=== PATIENT | male | born 1960 | race African-American/Black ===

== ENCOUNTER 2023-11-15 16:52 | Emergency (ER) | payer MEDICARE, MEDICAID ==
[~2023-11-15] VITALS: Ht 170.2 cm; Wt 70.0 kg
[2023-11-15 17:00] VITALS: O2SAT 98
[2023-11-15] MEDS: SODIUM CHLORIDE 0.9% 1000ML BAG (SEPSIS BOLUS) IV ONE (19:15)
[2023-11-15 20:14] LABS: HEMATOCRIT. 24.7 % (42.0-52.0); HEMOGLOBIN. 7.7 g/dL (14.0-18.0); MEAN CORPUSCULAR HEMOGLOBIN 23.5 pg (28.0-32.0); MEAN CORPUSCULAR HGB CONC 31.2 g/dL (31.0-37.0); MEAN CORPUSCULAR VOLUME 75.1 fL (80.0-94.0); MEAN PLATELET VOLUME 8.5 fl (7.4-10.4); PLATELET 107 x1000/uL (130-400); RED BLOOD CELL COUNT 3.28 mill/uL (4.7-6.1); RED CELL DISTRIBUTION WIDTH 24.4 % (11.6-14.6); WHITE BLOOD COUNT 12.6 x1000/uL (4.5-11.0)
[2023-11-15 20:16] LABS: DIFFERENTIAL COMMENT 1
[2023-11-15 20:25] LABS: CHLORIDE 108 mEq/L (98-107); POTASSIUM 4.4 mEq/L (3.5-5.1); SODIUM 140 mEq/L (136-145)
[2023-11-15 20:26] LABS: CARBON DIOXIDE 27 mEq/L (21-32); INR 1.1; PROTHROMBIN TIME 12.1 sec (9.6-11.0)
[2023-11-15 20:27] LABS: CALCIUM 8.2 mg/dL (8.7-10.4)
[2023-11-15 20:31] LABS: CREATININE 0.8 mg/dL (0.6-1.3); GLUCOSE 108 mg/dL (70-105); UREA NITROGEN BLOOD 28 mg/dL (9-23)
[2023-11-15 20:32] LABS: TROPONIN I HIGH SENSITIVITY 10 ng/L (3.0-53)
[2023-11-15 20:33] LABS: ALANINE AMINOTRANSFERASE 16 IU/L (10-49); ASPARTATE AMINOTRANSFERASE 13 IU/L (<34)
[2023-11-15 20:34] LABS: BILIRUBIN TOTAL 0.8 mg/dL (0.1-1.0); PROTEIN TOTAL 4.9 g/dL (6.0-8.3)
[2023-11-15 22:30] LABS: ANISOCYTOSIS 2+; HYPOCHROMASIA 1+; MICROCYTOSIS 1+; PLATELET ESTIMATE DECREASED
[2023-11-16] MEDS: HYDROCODONE/ACETAMINOPHEN 5/325MG TABLET PO ONE (00:43)
[2023-11-16 13:43] VITALS: BP 118/72; PULSE 91; RESP 17; TEMP 98.2
== END 2023-11-16 13:47 | disposition home or self-care (01) ==
LOC: ER 16:52
DX: T83.098A Other mechanical complication of other urinary catheter, initial encounter (principal); I10 Essential (primary) hypertension; X58.XXXA Exposure to other specified factors, initial encounter
CPT/HCPCS: 99285; 96360; 96361; 71045; 80053; 87106; 83880; 83605; 85025; 85610; 87040; 84484; 36415; 84145; 93005; J7030